=== PATIENT | female | born 1970 | race Caucasian/White ===

== ENCOUNTER 2018-08-19 07:37 | Day surgery (SDC) | payer OTHER ==
[2018-08-18 14:42] LABS: BASOPHILS # (AUTO) 0.1 X10'3 (0-0.2); BASOPHILS % (AUTO) 0.9 % (0-1); EOSINOPHILS % (AUTO) 0 % (0-6); LYMPHOCYTES % (AUTO) 24.6 % (21-51); MEAN CORPUSCULAR HEMOGLOBIN 33.7 PG (27.0-31.0); MEAN CORPUSCULAR HGB CONC 33.7 g/dL (33.0-36.5); MEAN PLATELET VOLUME 7.6 FL (7.4-10.4); MONOCYTES # (AUTO) 0.4 X10'3 (0-0.9); MONOCYTES % (AUTO) 5.1 % (2-12); NEUTROPHILS # (AUTO) 5.8 X10'3 (1.8-7.7); NEUTROPHILS % (AUTO) 69.4 % (42-75); PRE OP HEMATOCRIT 39.3 % (35.0-45.0); PRE OP HEMOGLOBIN 13.3 g/dL (12.0-16.0); PRE OP PLATELET COUNT 337 X10'3 (140-440); RED BLOOD COUNT 3.93 X10'6 (4.20-5.60); RED CELL DISTRIBUTION WIDTH 13.3 % (11.5-14.5)
[2018-08-18 14:56] LABS: ALBUMIN 3.9 G/DL (3.4-5.0); ALBUMIN/GLOBULIN RATIO 1.3 (1.1-1.5); ALKALINE PHOSPHATASE 52 IU/L (46-116); BLOOD UREA NITROGEN 6 MG/DL (7-18); BUN/CREATININE RATIO 10.5 (6.6-38.0); CALCIUM 9.1 MG/DL (8.5-10.1); CHLORIDE 105 MMOL/L (99-107); CREATININE 0.57 MG/DL (0.40-0.90); PRE OP ALT 28 U/L (30-65); PRE OP ANION GAP 8 (8-16); PRE OP AST 19 U/L (10-37); PRE OP GLUCOSE 81 MG/DL (70-104); PRE OP POTASSIUM 3.7 MMOL/L (3.4-5.1); PRE OP SODIUM 142 MMOL/L (135-145); TOTAL CARBON DIOXIDE 28.8 MMOL/L (24-32); eGFR > 90 ML/MIN
[2018-08-19] VITALS (10 sets, daily range): BP systolic 102–115; BP diastolic 59–87
[~2018-08-19] VITALS: Ht 158.8 cm; Wt 42.0 kg
[~2018-08-19 07:37] MED LIST: ASHWAGANDHA; BOSW1POW; CHOL400T14 PO; FERR134T2 PO; MAGN400C PO; TUMERIC; acetaminophen 325mg tablet PO ONE; cefazolin/dext.iso 2gm/100 ML IV ONE; famotidine 20mg tablet PO ONE; gabapentin 300mg capsule PO ONE; oxyCODONE SR 10mg (sust. release) tab PO ONE; ringers solution, lacted 1,000 ML IV SCH
[2018-08-19] MEDS ORDERED: ceFAZolin 1000mg inj ONE (09:15)
[2018-08-19] MEDS ORDERED: ROPIVAcaine 0.5% (5mg/ml) 30ml vial ONE (09:15)
[2018-08-19] MEDS ORDERED: sevoflurane 250ml liquid IH ONE (11:20)
[2018-08-19] MEDS ORDERED: midazolam 2 mg/2 ml injection ONE (11:25)
[2018-08-19] MEDS ORDERED: fentaNYL /PF 50mcg/ml 5ml ampule ONE (11:26)
[2018-08-19] MEDS ORDERED: ondansetron/PF 4mg/2ml inj IV PRN (12:20)
[2018-08-19] MEDS ORDERED: meperidine/PF 25mg/ml syringe IV PRN (12:20)
[2018-08-19] MEDS ORDERED: morphine 4 MG/ML inj SYRINge IV PRN (12:20)
[2018-08-19] MEDS ORDERED: ringers solution, lacted 1,000 ML IV SCH (12:20)
[2018-08-19] MEDS ORDERED: ondansetron/PF 4mg/2ml inj ONE (12:24)
[2018-08-19] MEDS ORDERED: LIDOcaine 2% (20mg/ml) 5ml vial ONE (12:24)
[2018-08-19] MEDS ORDERED: dexamethasone sod phosphate 4mg/ml inj. ONE (12:24)
[2018-08-19] MEDS ORDERED: propofol inj 20 ML IV ONE (12:24)
--- NOTE | 2018-08-19 12:44 | NUR ---
Received from OR via , accompanied by Anesthesiologist Dr. Bourgeois and report given by Anesthesiolgist. 20 GAUGE LEFT WRIST RUNNNG LR AT 100, left KNEE dressing CDI, DORSALIS PEDIS PULSE NOTED, NO PAIN, S, .3L NC SATING AT 100%. VSS THIS TIME, WILL CONTINUE TO MONITOR.
[2018-08-19] MEDS ORDERED: oxyCODONE SR 10mg (sust. release) tab PO ONE (13:30)
--- NOTE | 2018-08-19 14:17 | NUR ---
PATIENT DISCHARGE INSTRUCTIONS GIVEN, PATIENT VERBALIZED UNDERSTANDING. PIV DC'D, CATH TIP INTACT. PATIENT D/C TO PERSONAL VEHICLE WITH ALL PERSONAL BELONGINGS ACCOMPANIED BY STAFF AND FRIENDS.
== END 2018-08-19 14:00 | disposition home or self-care (01) ==
LOC: PAS 07:37
PROVIDERS: ATTEND Orthopaedic Surgery
DX: S83.212A Bucket-handle tear of medial meniscus, current injury, left knee, initial encounter (principal); T84.84XA Pain due to internal orthopedic prosthetic devices, implants and grafts, initial encounter; M19.90 Unspecified osteoarthritis, unspecified site; X58.XXXA Exposure to other specified factors, initial encounter; Y93.89 Activity, other specified; Y92.89 Other specified places as the place of occurrence of the external cause; Y99.8 Other external cause status; Y83.8 Other surgical procedures as the cause of abnormal reaction of the patient, or of later complication, without mention of misadventure at the time of the procedure; Z72.89 Other problems related to lifestyle
CPT/HCPCS: 20680; 29881; 36415; 80053; 82948; 85025; A6449; J0690; J1100; J2001; J2175; J2250; J2405; J2704; J3010; A7000; J2795; J7030; J7120